=== PATIENT | female | born 1980 | race Caucasian/White ===

== ENCOUNTER 2018-06-16 00:10 | Emergency (ER) | payer OTHER ==
[2018-06-16] MEDS ORDERED: Sodium Chloride 0.9% 1,000 ML IV STA (00:29)
[2018-06-16 00:39] VITALS: BP 127/67; PULSE 88; RESP 16; TEMP 97.3; O2SAT 100
[2018-06-16 01:15] LABS: BASO # 0.1 K/uL (0.0-0.2); BASO % 0.8 % (0.0-2.0); EOS # 0.2 K/uL (0.0-0.7); EOS % 2.1 % (0.0-4.0); HEMOGLOBIN 9.9 g/dL (12.0-16.0); LYMPH # 1.5 K/uL (1.0-4.3); LYMPH % 18.7 % (20.0-40.0); MEAN CELL VOLUME 76.6 fl (81.0-99.0); MEAN CORPUSCULAR HEMOGLOBIN 24.9 pg (27.0-31.0); MEAN CORPUSCULAR HGB CONC 32.6 g/dL (33.0-37.0); MEAN PLATELET VOLUME 9.7 fl (7.2-11.7); MONO # 0.4 K/uL (0.0-0.8); MONO % 5.2 % (0.0-10.0); NEUT # 6.1 K/uL (1.8-7.0); NEUT % 73.2 % (50.0-75.0); RBC 3.99 Mil/uL (3.80-5.20); WHITE BLOOD COUNT 8.3 K/uL (4.8-10.8)
[2018-06-16 01:17] LABS: ALB/GLOB RATIO 1.3 (1.0-2.1); ALBUMIN 4.1 g/dL (3.5-5.0); ALT/SGPT 28 U/L (9-52); AST/SGOT 25 U/L (14-36); BLOOD UREA NITROGEN 10 mg/dl (7-17); CALCIUM 8.8 mg/dL (8.4-10.2); GFR AFRICAN-AMERICAN > 60; GFR NON-AFRICAN AMERICAN > 60; LIPASE 101 U/L (23-300)
--- NOTE | 2018-06-16 01:29 | ED PDOC ---
Syncope/Near Syncope/Dizziness Time Seen by Provider: 06/16/18 00:17 Chief Complaint (Nursing): Syncope Chief Complaint (Provider): Sycnope History Per: Patient History/Exam Limitations: no limitations Onset/Duration Of Symptoms: Hrs (prior to arrival) Additional Complaint(s): Michelle Mayen is a 37 y/o [place] female with a history of endometriosis who presents to the ED complaining of an acute sense of general weakness, onset earlier today. Patient reports she was driving with her family and suddenly felt very weak and unable to drive, she also reports feeling very sweaty and had to assembler for puller over machine to exchange seats with her family member. Patient reports she felt more and more weak as well as an associated numbness to her hands and legs. On arrival patient was lethargic but easily arousable. She denies any nausea or vomiting. Patient also reports she felt abdominal pain which she attributes to her endometriosis and took hydrocodone with some relief x6-7 hours ago. Patient states she suffered a miscarriage x2 months ago but has retruned to a normal menstrual cycle since; her last normal menstrual period was 2 weeks ago. She has also had 3 laproscopic procedures that were related to endometriosis. Past Medical History Reviewed: Historical Data, Nursing Documentation, Vital Signs Vital Signs: Last Vital Signs Temp 97.3 F L 06/16/18 00:25 Pulse 88 06/16/18 00:25 Resp 16 06/16/18 00:25 BP 127/67 06/16/18 00:25 Pulse Ox 100 06/16/18 00:25 - Medical History Other PMH: Endometriosis - Surgical History Other surgeries: Laproscopy (x3) - Family History Family History: States: Unknown Family Hx - Allergies Allergies/Adverse Reactions: Allergies Allergy/AdvReac Type Severity Reaction Status Date / Time No Known Allergies Allergy Verified 06/16/18 00:25 Review of Systems ROS Statement: Except As Marked, All Systems Reviewed And Found Negative Constitutional: Negative for: Fever Gastrointestinal: Positive for: Abdominal Pain (earlier today). Negative for: Nausea, Vomiting Neurological: Positive for: Weakness, Numbness (hands and legs), Dizziness ( felt like she was going to lose consciousness) Physical Exam - Reviewed Nursing Documentation Reviewed: Yes Vital Signs Reviewed: Yes - Physical Exam Appears: Positive for: Non-toxic, No Acute Distress Head Exam: Positive for: ATRAUMATIC, NORMOCEPHALIC Skin: Positive for: Pallor Eye Exam: Positive for: EOMI, Normal appearance, PERRL Neck: Positive for: Normal, Painless ROM, Supple Cardiovascular/Chest: Positive for: Regular Rate, Rhythm. Negative for: Murmur Respiratory: Positive for: Normal Breath Sounds. Negative for: Respiratory Distress Gastrointestinal/Abdominal: Positive for: Normal Exam, Soft. Negative for: Tenderness Back: Positive for: Normal Inspection. Negative for: L CVA Tenderness, R CVA Tenderness Extremity: Positive for: Normal ROM. Negative for: Pedal Edema, Deformity Neurologic/Psych: Positive for: Oriented (x3). Negative for: Alert (but easily arousable), Motor/Sensory Deficits - Laboratory Results Result Diagrams: 18 00:45 06/16/18 00:45 - ECG O2 Sat by Pulse Oximetry: 100 (RA) Pulse Ox Interpretation: Normal Medical Decision Making Medical Decision Making: Time:00:29 Initial Impression: 37 y/o female with near syncopal event Initial Plan: --CT head w/o contrast --EKG --CMP --Lipase --Troponin I -CBC with diff --D Dimer --PTT --Prothrombin time --Sodium Chloride 0.9% 1000 ml IV 1000mlls/hr Time: 01:30 --Provider reevaluated patient. Patient has no complaints at this time and is requesting to be discharged Time: 01:32 --Labs show no clinically significant abnormalities. Discharge pending CT. Time: 01:45 CT head FINDINGS: Brain: Unremarkable. No hemorrhage. No significant white matter disease. No edema. Ventricles: Unremarkable. No ventriculomegaly. Bones/joints: Unremarkable. No acute fracture. Soft tissues: Unremarkable. Sinuses: Unremarkable as visualized. No acute sinusitis. Mastoid air cells: Unremarkable as visualized. No mastoid effusion. IMPRESSION: No evidence of acute intracranial hemorrhage. Time: 01:48 --Patient is continuing to feel well and has no further complaints. Upon provider reevaluation patient is feeling better, is medically stable, and requires no further treatment in the ED at this time. Counseling was provided and all questions were answered regarding diagnosis. There is agreement to discharge plan. Return if symptoms persist or worsen. Scribe Attestation: Documented by Yonis Pickering, acting as a scribe for Marcell Kelley MD. Provider Scribe Attestation: All medical record entries made by the Scribe were at my direction and personally dictated by me. I have reviewed the chart and agree that the record accurately reflects my personal performance of the history, physical exam, medical decision making, and the department course for this patient. I have also personally directed, reviewed, and agree with the discharge instructions and disposition. Disposition - Clinical Impression Clinical Impression: Near syncope - Disposition Disposition: Routine/Home Disposition Time: 01:48 Condition: STABLE Additional Instructions: MICHELLE MAYEN, thank you for letting us take care of you today. Your provider was Marcell Kelley MD and you were treated for WEAKNESS. The emergency medical care you received today was directed at your acute symptoms. If you were prescribed any medication, please fill it and take as directed. It may take several days for your symptoms to resolve. Return to the Emergency Department if your symptoms worsen, do not improve, or if you have any other problems. Please contact your doctor or call one of the physicians/clinics you have been referred to that are listed on the Patient Visit Information form that is included in your discharge packet. Bring any paperwork you were given at discharge with you along with any medications you are taking to your follow up visit. Our treatment cannot replace ongoing medical care by a primary care provider outside of the emergency department. Thank you for allowing the [facility] team to be part of your care today. If you had an X-Ray or CT scan: A Radiologist will review the ED reading if any change in treatment is needed we will contact you. If you had a blood, urine, or wound culture: It will take several days for the results, if any change in treatment is needed we will contact you. If you had an STI test: It will take 48 hours for the results. Please call after 1 week if you have not heard back. Instructions: Paresthesias (DC), Near Fainting Forms: [employer] (Samoan)
[2018-06-16 01:35] LABS: PARTIAL THROMBOPLASTIN TIME 25.1 Seconds (25.6-37.1); PROTHROMBIN TIME 11.5 Seconds (9.8-13.1)
--- NOTE | 2018-06-16 08:09 | CT ---
Date of service: 06/16/2018 PROCEDURE: CT HEAD WITHOUT CONTRAST. HISTORY: syncope COMPARISON: None available. TECHNIQUE: Axial computed tomography images were obtained through the head/brain without intravenous contrast. Radiation dose: Total exam DLP = 816 mGy-cm. This CT exam was performed using one or more of the following dose reduction techniques: Automated exposure control, adjustment of the mA and/or kV according to patient size, and/or use of iterative reconstruction technique. FINDINGS: HEMORRHAGE: No intracranial hemorrhage. BRAIN: No mass effect or edema. No atrophy or chronic microvascular ischemic changes. VENTRICLES: Unremarkable. No hydrocephalus. CALVARIUM: Unremarkable. PARANASAL SINUSES: Unremarkable as visualized. No significant inflammatory changes. MASTOID AIR CELLS: Unremarkable as visualized. No inflammatory changes. OTHER FINDINGS: None. IMPRESSION: Normal CT of the Head. Concordant results (preliminary interpretation) provided by [facility].
--- NOTE | 2018-06-17 15:26 | CARD ---
APPROVED REPORT Date of service: 06/16/2018 EKG Measurement Heart [id number] VT [id number] [id number] <Conclusion> Normal sinus rhythm Prolonged QT Abnormal ECG
== END 2018-06-16 01:55 | disposition home or self-care (01) ==
LOC: H.ER 00:10
DX: R55 Syncope and collapse (principal)
CPT/HCPCS: 70450; 80053; 80320; 82948; 83690; 83735; 84484; 85025; 85378; 85610; 85730; 93005; 96360; 99285; J7030